=== PATIENT | male | born 1970 | race Two or more races ===

== ENCOUNTER 2021-08-16 21:18 | Observation (INO) | payer BC ==
--- NOTE | 2021-08-16 21:44 | ED ---
Chest Pain HPI - General Chief Complaint: Chest Pain Stated Complaint: Chest Pain Time Seen by Provider: 08/16/21 21:36 Source: patient, RN notes reviewed, old records reviewed Mode of arrival: EMS Limitations: no limitations - History of Present Illness Initial Comments: This is a 51-year-old male to the emergency department for evaluation of chest pain epigastric chest pain left-sided chest pain. She does have history of cardiac issues. Patient chest pain is pretty typical here today. No travel show sick contacts no fevers. MD Complaint: chest pain -: hour(s) Onset: during rest, during exertion Pain Location: substernal, left chest Pain Radiation: none Severity: mild Severity scale (1-10): 2 Quality: tightness Consistency: intermittent Improves With: nothing Worsens With: nothing Anginal Symptoms: sense of impending doom Other Symptoms: palpitations Treatments Prior to Arrival: none - Related Data Home Medications Medication Instructions Recorded Confirmed Atorvastatin Calcium [Lipitor] 40 mg PO HS 08/16/21 08/16/21 Chlorthalidone [Hygroton] 25 mg PO HS 08/16/21 08/16/21 Escitalopram [Lexapro] 20 mg PO HS 08/16/21 08/16/21 Fluticasone Nasal [place] [Flonase 2 spray EA NOSTRIL DAILY PRN 08/16/21 08/16/21 Nasal [place]] Gabapentin 600 mg PO TID 08/16/21 08/16/21 Ibuprofen [Motrin] 800 mg PO TID PRN 08/16/21 08/16/21 Methocarbamol [Robaxin-750] 750 mg PO TID PRN 08/16/21 08/16/21 Pantoprazole [Protonix] 40 mg PO BID 08/16/21 08/16/21 hydrOXYzine pamoate [hydrOXYzine 25 mg PO TID PRN 08/16/21 08/16/21 PAMOATE] lisinopriL [Zestril] 20 mg PO DAILY 08/16/21 08/16/21 traZODone HCL 50 mg PO HS 08/16/21 08/16/21 Allergies Allergy/AdvReac Type Severity Reaction Status Date / Time Penicillins Allergy Itching Verified 08/16/21 21:57 Review of Systems ROS Statement: Those systems with pertinent positive or pertinent negative responses have been documented in the HPI. ROS Other: All systems not noted in ROS Statement are negative. EKG Findings - EKG Comments: EKG Findings:: EKG shows sinus rhythm 76 WA 131 QRS 150 QTC 446 General Exam General appearance: alert, in no apparent distress Head exam: Present: atraumatic, normocephalic, normal inspection Eye exam: Present: normal appearance, PERRL, EOMI. Absent: scleral icterus, conjunctival injection, periorbital swelling ENT exam: Present: normal exam, mucous membranes moist Neck exam: Present: normal inspection. Absent: tenderness, meningismus, lymphad enopathy Respiratory exam: Present: normal lung sounds bilaterally. Absent: respiratory distress, wheezes, rales, rhonchi, stridor Cardiovascular Exam: Present: regular rate, normal rhythm, normal heart sounds. Absent: systolic murmur, diastolic murmur, rubs, gallop, clicks GI/Abdominal exam: Present: soft, normal bowel sounds. Absent: distended, tenderness, guarding, rebound, rigid Extremities exam: Present: normal inspection, full ROM, normal capillary refill. Absent: tenderness, pedal edema, joint swelling, calf tenderness Back exam: Present: normal inspection Neurological exam: Present: alert, oriented X3, CN II-XII intact Psychiatric exam: Present: normal affect, normal mood Skin exam: Present: warm, dry, intact, normal color. Absent: rash Course Vital Signs 08/16/21 08/16/21 21:27 22:18 Temperature 98.0 F Pulse Rate 77 88 Respiratory 18 18 Rate Blood Pressure 167/93 O2 Sat by Pulse 99 97 Oximetry - Reevaluation(s) Reevaluation #1: 08/17/21 00:26 Medical record is reviewed Reevaluation #2: 08/17/21 00:26 Patient informed results and questions are answered Reevaluation #3: 08/17/21 00:26 Patient still having intermittent chest pain here in the ER - Consultations Consultation #1: Spoke with [facility] who agreed to admit this patient Chest Pain MDM - MDM 48 female DF for evaluation of chest pain. Patient has normal troponin normal EKG. Patient will be admitted for chest pain observation Disposition Clinical Impression: Chest pain Disposition: ADMITTED IP TO THIS HOSP Condition: Undetermined Is patient prescribed a controlled substance at d/c from ED?: No
--- NOTE | 2021-08-16 22:04 | XR ---
EXAMINATION TYPE: XR chest 2V DATE OF EXAM: 08/16/2021 COMPARISON: NONE HISTORY: Pain TECHNIQUE: 2 views FINDINGS: Heart is normal. Lungs are clear of infiltrate. There is no heart failure. There are no hil ar masses. The bony thorax is intact. There are chest leads. IMPRESSION: No active cardiopulmonary disease. Normal heart.
[2021-08-16 22:28] LABS: Basophils # (A) 0.1 k/uL (0-0.2); Basophils % (A) 1 %; Eosinophils # (A) 0.3 k/uL (0-0.7); Eosinophils % (A) 3 %; HGB 13.6 gm/dL (13.0-17.5); Lymphocytes # (A) 2.5 k/uL (1.0-4.8); Lymphocytes % (A) 30 %; MCH 31.5 pg (25.0-35.0); MCHC 33.9 g/dL (31.0-37.0); Mean Platelet Volume 7.2; Monocytes # (A) 0.8 k/uL (0-1.0); Monocytes % (A) 9 %; Neutrophils # (A) 4.5 k/uL (1.3-7.7); Neutrophils % (A) 53 %; Platelet Count 384 k/uL (150-450); RDW 13.1 % (11.5-15.5); WBC 8.4 k/uL (3.8-10.6)
[2021-08-16 22:43] LABS: ALT 33 U/L (4-49); AST 41 U/L (17-59); African American GFR (CKD) >90 (>60 ml/min/1.73 sqM); Alkaline Phosphatase 65 U/L (38-126); Anion Gap 7 mmol/L; Blood Urea Nitrogen 17 mg/dL (9-20); Calcium 8.6 mg/dL (8.4-10.2); Carbon Dioxide 27 mmol/L (22-30); Chloride 103 mmol/L (98-107); Glucose 95 mg/dL (74-99); INR 0.9 (<1.2); Lipase 198 U/L (23-300); Magnesium 1.8 mg/dL (1.6-2.3); Non-African American GFR(CKD) >90 (>60 ml/min/1.73 sqM); Potassium 3.7 mmol/L (3.5-5.1); Sodium 137 mmol/L (137-145); Total Bilirubin 0.5 mg/dL (0.2-1.3); Total Protein 7.3 g/dL (6.3-8.2)
[2021-08-16 22:44] LABS: Partial Thromboplastin Time 23.2 sec (22.0-30.0)
--- NOTE | 2021-08-16 23:46 | CT ---
EXAMINATION TYPE: CT angio chest DATE OF EXAM: 08/16/2021 COMPARISON: None HISTORY: Chest Pain. R/O PE CT DLP: 527.10 mGycm Automated exposure control for dose reduction was used. CONTRAST: Performed with IV Contrast, patient injected with 70 mL of Isovue 370. There are Three-D postprocessed images. The lungs are clear of consolidation. There is no pleural effusion. Heart size is normal. There is no pericardial effusion. There are no hilar masses. There is no mediastinal adenopathy. There is no pneumothorax. Thoracic aorta is intact. There is no aneurysm or dissection. There is normal contrast opacification of the pulmonary arteries. There are no filling defects. The thoracic spine is intact. There is no compression fracture. Sternum is intact. Upper abdominal so ft tissues are intact. IMPRESSION: Negative exam. No evidence of pulmonary embolism.
[2021-08-17] MEDS ORDERED: ASPIRIN 81 MG PO STA (00:01)
[2021-08-17] MEDS ORDERED: NITROGLYCERIN SL TABS 0.4 MG TAB SUBLINGUAL PRN (00:01)
[2021-08-17] MEDS ORDERED: MORPHINE SULFATE 4 MG/ML SYRINGE IV PRN (00:01)
[2021-08-17] MEDS ORDERED: FLUTICASONE 50MCG/SPRAY NASAL 16GM EA NOSTRIL PRN (03:45)
[2021-08-17] MEDS ORDERED: methocarbamoL 750 MG TAB PO PRN (03:45)
--- NOTE | 2021-08-17 03:47 | P.HPIM ---
History of Present Illness H&P Date: 08/16/21 Patient is a 51-year-old male with a PMH of tobacco abuse (smokes 1 pack per day), hypertension, hyperlipidemia, and COPD who presents to the emergency room with complaints of chest discomfort. The patient reports substernal sharp and subsequently pressure-like chest discomfort that started suddenly at around 8 PM tonight. The pain was 7 out of 10 on maximal intensity, with associated shortness of breath and palpitations. The patient denied experiencing nausea, vomiting, diaphoresis, or dizziness. He reports that the pain quickly improved after receiving sublingual nitroglycerin by EMS. At the time of interview, the patient reports that his pain is essentially resolved. He denied experiencing cough, fever, chills, abdominal pain, diarrhea. Chest CTA in the emergency room was unremarkable. EKG revealed sinus rhythm with a right bundle branch block at 76 bpm. Laboratory evaluation revealed a troponin of less than 0.012. Review of systems: Pertinent positives and negatives as discussed in HPI, a complete review of systems was performed and all other systems are negative. Physical examination: General: non toxic, no distress, appears at stated age, obese Derm: no unusual rashes/lesions no unusual ecchymoses, warm, dry Head: atraumatic, normocephalic, symmetric Eyes: EOMI, no lid lag, anicteric sclera, pupils equal round reactive to light ENT: Nose and ears atraumatic, no thrush, no pharyngeal erythema Neck: No thyromegaly, no cervical lymphadenopathy, trachea midline, supple Mouth: no lip lesion, mucus membranes moist Cardiovascular: S1S2 reg, no murmur, positive posterior tibial pulse bilateral, no edema, capillary refill less than 2 seconds Lungs: CTA bilateral, no rhonchi, no rales , no accessory muscle use Abdominal: soft, nontender to palpation, no guarding, no appreciable organomegaly, normal bowel sounds Ext: no gross muscle atrophy, muscle strength 5 out of 5 in all 4 extremities grossly, no contractures, Neuro: CN II-XI grossly intact, light touch intact all 4 extremities, finger to nose within normal limits, Psych: Alert, oriented, appropriate affect Assessment/plan Chest pain, rule out ACS -Continue with aspirin -Trend troponin -Cardiology consult -Cardiac monitoring Chronic conditions: Hypertension, hyperlipidemia, COPD -Continue with home meds DVT prophylaxis -Heparin subcu The patient is admitted with an anticipated less than 2 midnight stay for evaluation of chest pain CODE STATUS: Full Code Discussed with: Patient Anticipated discharge date: in am Anticipated discharge place: Home Past Medical History History of Any Multi-Drug Resistant Organisms: None Reported Smoking Status: Never smoker Medications and Allergies Home Medications Medication Instructions Recorded Confirmed Type Atorvastatin Calcium [Lipitor] 40 mg PO HS 08/16/21 08/16/21 History Chlorthalidone [Hygroton] 25 mg PO HS 08/16/21 08/16/21 History Escitalopram [Lexapro] 20 mg PO HS 08/16/21 08/16/21 History Fluticasone Nasal [place] [Flonase 2 spray EA NOSTRIL DAILY PRN 08/16/21 08/16/21 History Nasal [place]] Gabapentin 600 mg PO TID 08/16/21 08/16/21 History Ibuprofen [Motrin] 800 mg PO TID PRN 08/16/21 08/16/21 History Methocarbamol [Robaxin-750] 750 mg PO TID PRN 08/16/21 08/16/21 History Pantoprazole [Protonix] 40 mg PO BID 08/16/21 08/16/21 History hydrOXYzine pamoate [hydrOXYzine 25 mg PO TID PRN 08/16/21 08/16/21 History PAMOATE] lisinopriL [Zestril] 20 mg PO DAILY 08/16/21 08/16/21 History traZODone HCL 50 mg PO HS 08/16/21 08/16/21 History Allergies Allergy/AdvReac Type Severity Reaction Status Date / Time Penicillins Allergy Itching Verified 08/16/21 21:57 Physical Exam Vitals: Vital Signs Temp Pulse Pulse Resp BP BP Pulse Ox 08/17/21 01:14 98.2 F 69 15 157/72 98 08/17/21 00:56 81 16 168/77 96 08/17/21 00:47 81 81 H 168/77 96 08/16/21 22:18 88 18 97 08/16/21 21:27 98.0 F 77 18 167/93 99 Intake and Output 08/16/21 08/16/21 08/17/21 14:59 22:59 06:59 Other: Weight 104.326 kg 104.326 kg Results CBC & Chem 7: 08/16/21 22:00 08/16/21 22:00 Labs: Abnormal Lab Results - Last 24 Hours (Table) 08/16/21 Range/Units 22:00 D-Dimer 0.97 H (<0.60) mg/L FEU
[2021-08-17] MEDS ORDERED: PANTOPRAZOLE 40 MG TABLET PO SCH (07:30)
[2021-08-17] MEDS ORDERED: HEPARIN SODIUM,PORCINE/PF 5,000 UNIT/0.5 ML SYRINGE SQ SCH (08:00)
[2021-08-17 08:16] VITALS: BP 149/84; PULSE 62; RESP 18; TEMP 98.4
[2021-08-17] MEDS ORDERED: ASPIRIN 81 MG PO SCH (09:00)
[2021-08-17] MEDS ORDERED: lisinopriL 20 MG TAB PO SCH ×2 (09:00)
[2021-08-17] MEDS ORDERED: GABAPENTIN 300 MG CAP PO SCH (09:00)
--- NOTE | 2021-08-17 09:46 | P.CRDCN ---
History of Present Illness Consult date: 08/17/21 History of present illness: HISTORY OF PRESENT ILLNESS: This is a 51-year-old male with a past medical history significant for hypertension, hyperlipidemia, nicotine dependence, and daily alcohol use. 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 We have been asked to see the patient in consultation for chest pain. Patient examined at the bedside. Patient states yesterday he was about to get in the shower to get ready for work when he began having pain in the middle of his chest. He states it felt like a sharp pain. He states it only lasted for a few seconds and then went away and then he felt tightness in his chest for about 20 or 30 minutes and then it slowly resolved on its own. He denied any radiation of the pain. He does repor t feeling short of breath at the time but he thinks it was related to anxiety. This morning he denies any chest pain or pressure. The patient is a current smoker and smokes 1 pack per day. He is also on everyday drinker and states he drinks 1/2 pint of alcohol daily. Patient's blood pressure is elevated this morning with a systolic in the 160s. * EKG reveals sinus mechanism with right bundle branch block. * Chest xray no active cardiopulmonary disease * Chest CTA: Negative for pulmonary embolism * Laboratory data: WBC 8.4. Hemoglobin 13.6. Platelet count 384. D-dimer 0.97. Sodium 137. Potassium 3.7. BUN 17. Creatinine 0.93. Magnesium 1.8. Troponin negative 3. * Current home cardiac medications include lisinopril 20 mg daily, chlorthalidone 25 mg at night, and atorvastatin 40 milligrams at night REVIEW OF SYSTEMS: At the time of my exam: CONSTITUTIONAL: Denies fever or chills. HEENT: Denies blurred vision, vision changes, or eye pain. Denies hemoptysis CARDIOVASCULAR: Denies chest pain. Denies orthopnea. Denies PND. Denies palpitations RESPIRATORY: Denies shortness of breath. GASTROINTESTINAL: Denies abdominal pain. Denies nausea or vomiting. HEMATOLOGIC: Denies bleeding disorders. GENITOURINARY: Denies any blood in urine. SKIN: Denies pruitis. Denies rash. PHYSICAL EXAM: VITAL SIGNS: Reviewed. GENERAL: Well-developed in no acute distress. HEENT: Head is normocephalic. Pupils are equal, round. Sclerae anicteric. Mucous membranes of the mouth are moist. Neck supple. No JVD or thyromegaly LUNGS: Respirations even and unlabored. Lungs essentially clear to auscultation bilaterally. HEART: Regular rate and rhythm. S1 and S2 heard. ABDOMEN: Soft. Nondistended. Nontender. EXTREMITIES: Normal range of motion. No clubbing or cyanosis. Peripheral pulses intact. No lower extremity edema NEUROLOGIC: Awake and alert. Oriented x 3. ASSESSMENT: Chest pain, troponin negative x 3 Hypertension Hyperlipidemia Nicotine dependence, smokes 1PPD Daily alcohol use, 1/2 pint per day Family history of CAD PLAN: An acute coronary event has been ruled out Obtain 2D echo to assess cardiac structure and function Increase lisinopril to twice a day dosing for optimal blood pressure control Patient to undergo stress echo today to assess for ischemia Smoking cessation recommended Abstinence from alcohol recommended Further recommendations pending patient course Nurse practitioner note has been reviewed by physician. Signing provider agrees with the documented findings, assessment, and plan of care. Past Medical History History of Any Multi-Drug Resistant Organisms: None Reported Smoking Status: Never smoker Medications and Allergies Home Medications Medication Instructions Recorded Confirmed Type Atorvastatin Calcium [Lipitor] 40 mg PO HS 08/16/21 08/16/21 History Chlorthalidone [Hygroton] 25 mg PO HS 08/16/21 08/16/21 History Escitalopram [Lexapro] 20 mg PO HS 08/16/21 08/16/21 History Fluticasone Nasal [place] [Flonase 2 spray EA NOSTRIL DAILY PRN 08/16/21 08/16/21 History Nasal [place]] Gabapentin 600 mg PO TID 08/16/21 08/16/21 History Ibuprofen [Motrin] 800 mg PO TID PRN 08/16/21 08/16/21 History Methocarbamol [Robaxin-750] 750 mg PO TID PRN 08/16/21 08/16/21 History Pantoprazole [Protonix] 40 mg PO BID 08/16/21 08/16/21 History hydrOXYzine pamoate [hydrOXYzine 25 mg PO TID PRN 08/16/21 08/16/21 History PAMOATE] lisinopriL [Zestril] 20 mg PO DAILY 08/16/21 08/16/21 History traZODone HCL 50 mg PO HS 08/16/21 08/16/21 History Allergies Allergy/AdvReac Type Severity Reaction Status Date / Time Penicillins Allergy Itching Verified 08/16/21 21:57 Physical Exam Vitals: Vital Signs Temp Pulse Pulse Resp BP BP Pulse Ox 08/17/21 01:14 98.2 F 69 15 157/72 98 08/17/21 00:56 81 16 168/77 96 08/17/21 00:47 81 81 H 168/77 96 08/16/21 22:18 88 18 97 08/16/21 21:27 98.0 F 77 18 167/93 99 Intake and Output 08/16/21 08/17/21 08/17/21 22:59 06:59 14:59 Other: # Voids 1 Weight 104.326 kg 104.326 kg Results 08/16/21 22:00 08/16/21 22:00 Cardiac Enzymes 08/16/21 08/16/21 08/17/21 Range/Units 22:00 22:00 00:38 AST 41 (17-59) U/L Troponin I <0.012 0.013 (0.000-0.034) ng/mL 08/17/21 Range/Units 02:43 AST (17-59) U/L Troponin I 0.018 (0.000-0.034) ng/mL Coagulation 08/16/21 Range/Units 22:00 PT 10.0 (9.0-12.0) sec APTT 23.2 (22.0-30.0) sec CBC 08/16/21 Range/Units 22:00 WBC 8.4 (3.8-10.6) k/uL RBC 4.30 (4.30-5.90) m/uL Hgb 13.6 (13.0-17.5) gm/dL Hct 40.0 (39.0-53.0) % Plt Count 384 (150-450) k/uL Comprehensive Metabolic Panel 08/16/21 Range/Units 22:00 Sodium 137 (137-145) mmol/L Potassium 3.7 (3.5-5.1) mmol/L Chloride 103 (98-107) mmol/L Carbon Dioxide 27 (22-30) mmol/L BUN 17 (9-20) mg/dL Creatinine 0.93 (0.66-1.25) mg/dL Glucose 95 (74-99) mg/dL Calcium 8.6 (8.4-10.2) mg/dL AST 41 (17-59) U/L ALT 33 (4-49) U/L Alkaline Phosphatase 65 (38-126) U/L Total Protein 7.3 (6.3-8.2) g/dL Albumin 4.0 (3.5-5.0) g/dL Current Medications Generic Name Dose Route Start Last Admin Trade Name Freq PRN Reason Stop Dose Admin Aspirin 325 mg 08/18/21 09:00 Aspirin 325 Mg Tab PO DAILY [facility] Atorvastatin Calcium 40 mg 08/17/21 21:00 Atorvastatin 40 Mg Tab PO HS [facility] Chlorthalidone 25 mg 08/17/21 21:00 Chlorthalidone 25 Mg Tab PO HS [facility] Escitalopram Oxalate 20 mg 08/17/21 21:00 Escitalopram 20 Mg Tab PO HS [facility] Fluticasone Propionate 2 spray 08/17/21 03:45 Fluticasone 50mcg/[place] Nasal 16gm EA NOSTRIL DAILY PRN Allergy Symptoms Gabapentin 600 mg 08/17/21 09:00 Gabapentin 300 Mg Cap PO TID [facility] Heparin Sodium (Porcine) 5,000 unit 08/17/21 08:00 Heparin Sodium,Porcine/Pf 5,000 Unit/0.5 Ml Syringe SQ Q8HR [facility] Lisinopril 20 mg 08/17/21 09:00 Lisinopril 20 Mg Tab PO DAILY [facility] Methocarbamol 750 mg 08/17/21 03:45 Methocarbamol 750 Mg Tab PO TID PRN Muscle Pain Morphine Sulfate 4 mg 08/17/21 00:01 Morphine Sulfate 4 Mg/Ml Syringe IV Q4HR PRN Chest Pain Nitroglycerin 0.4 mg 08/17/21 00:01 Nitroglycerin Sl Tabs 0.4 Mg Tab SUBLINGUAL Q5M PRN Chest Pain Pantoprazole Sodium 40 mg 08/17/21 07:30 Pantoprazole 40 Mg Tablet PO AC-BID [facility] Trazodone HCl 50 mg 08/17/21 21:00 Trazodone Hcl 50 Mg Tab PO HS [facility] Intake and Output 08/16/21 08/17/21 08/17/21 22:59 06:59 14:59 Other: # Voids 1 Weight 104.326 kg 104.326 kg 08/16/21 22:00 08/16/21 22:00
--- NOTE | 2021-08-17 12:31 | ECHOF ---
Referral Reason:LV function MEASUREMENTS -------- HEIGHT: 180.3 cm WEIGHT: 104.3 kg BP: 149/84 IVSd: 1.3 cm (0.6 - 1.1) LVIDd: 5.0 cm (3.9 - 5.3) LVPWd: 1.2 cm (0.6 - 1.1) EDV(Teich): 120 ml IVSs: 1.9 cm LVIDs: 3.2 cm LVPWs: 1.8 cm %IVS Thck: 47 % ESV(Teich): 41 ml EF(Teich): 66 % %FS: 36 % SV(Teich): 79 ml LA Diam: 3.5 cm (2.7 - 3.8) RVIDd: 3.1 cm (< 3.3) Ao Diam: 3.4 cm (2.0 - 3.7) AV Cusp: 2.5 cm (1.5 - 2.6) EPSS: 0.7 cm MV E Inocencio: 1.06 m/s MV DecT: 230 ms MV Dec Mcminn: 4.6 m/s MV A Inocencio: 0.79 m/s MV E/A Ratio: 1.35 MV PHT: 67 ms AV Vmax: 1.71 m/s AV maxP.65 mmHg TR Vmax: 2.35 m/s TR maxP.00 mmHg RAP: 5.00 mmHg RVSP: 27.00 mmHg MV EF SLOPE: 123.76 mm/s (70 - 150) MV EXCURSION: 16.66 mm (> 18.000) FINDINGS -------- Sinus rhythm. This was a technically adequate study. The left ventricular size is normal. There is mild concentric left ventricular hypertrophy. Overa ll left ventricular systolic function is normal with, an EF between 55 - 60 %. The right ventricle is normal in size. The left atrium is normal in size. The right atrium is normal in size. Interatrial and interventricular septum intact. Trace to mild aortic regurgitation. The mitral valve is normal. Mild tricuspid regurgitation present. Right ventricular systolic pressure is normal at < 35 mmHg. The pulmonic valve is normal. The aortic root size is normal. IVC Not well visulized. There is no pericardial effusion. CONCLUSIONS -------- 1. The left ventricular size is normal. 2. There is mild concentric left ventricular hypertrophy. 3. Overall left ventricular systolic function is normal with, an EF between 55 - 60 %. 4. Trace to mild aortic regurgitation. 5. Mild tricuspid regurgitation present. 6. There is no pericardial effusion. WEIGHER AND GRADER: Blanca Persaud RDCS
--- NOTE | 2021-08-17 13:58 | P.STRESS ---
- Stress Test Note Stress Test Results/Findings: Exam Performed: stress echo exercise Exam Date: 08/17/21 Reason for Exam: CP Height: 5 ft 11 in Weight: 104.33 kg Protocol: STRESS ECHO Stage: 111 Duration of Exercise: 8.01 Resting Heart Rate: 65 Resting Blood Pressure: 146/55 Maximum Achieved Heart Rate: 149 Maximum Achieved Blood Pressure: 200/54 85% PMHR: 142 100% PMHR: 167 METS: 10.4 Technologist Comment: Stress Test Results/Findings: Baseline 12-lead EKG shows sinus rhythm normal [place] right bundle branch block normal ST segments Patient exercised on a Dl protocol for 8 minutes. Peak heart rate 149 beats a minute. Peak blood pressure 207/85 mmHg No symptoms No ECG evidence for ischemia or arrhythmia Baseline 2-D echo showed normal LV size and systolic function without segmental wall motion abnormalities At peak exercise there was excellent augmentation of overall LV contractility. No wall motion abnormalities At recovery regional global LV systolic function remained normal Impression average excess capacity No ECG or echocardiographic evidence for ischemia Hypertensive response to exercise Suggest Increase lisinopril to 20 mg twice daily
--- NOTE | 2021-08-17 14:24 | P.DS ---
<José Luis Aleman - Last Filed: 08/17/21 18:44> Providers Expected date of discharge: 08/17/21 Hospital Course: Discharge Diagnosis: Atypical chest pain, acute coronary event ruled out. Hypertension, lisinopril increased to 20 mg twice daily secondary to hypertensive response to exercise Hyperlipidemia COPD Nicotine dependence Hospital Course: Patient is a very pleasant 51-year-old male with a past medical history of hypertension, hyperlipidemia, COPD and current nicotine use smoking one pack of cigarettes daily. He presented to the emergency department on 08/16/21 with a chief complaint of chest pain. He was seen and fully evaluated in the emergency department and admitted under our services with consultation to cardiology to rule out acute coronary syndrome. An EKG was completed revealing normal sinus rhythm at 76 bpm with an incomplete right bundle branch block. Troponins trended and resulting at less than 0.012, 0.013, and 0.018. D-dimer was elevated at 0.97. CTA chest was completed negative for pulmonary emboli. Chest x-ray completed negative for acute cardiopulmonary process. Echocardiogram completed revealing a normal EF between 55 and 60% with no significant valvular abnormalities. Patient underwent Stress echo revealing no EKG evidence for ischemia or arrhythmia with impression of average exercise capacity, no echocardiographic evidence for reversible ischemia, hypertensive response to exercise. Cardiology recommending to increase lisinopril to 20 mg twice daily. Patient is medically stable for discharge at this time. Patient to follow-up outpatient as instructed with PCP and cardiology. Physical examination: Patient seen and examined at bedside. Patient reports being completely free from chest pain, shortness of breath, palpitations, or any other complaints at this time. Vital signs reviewed and stable. General: Nontoxic, no distress and appears stated age. Derm: Skin warm and dry, normal coloration for ethnicity. Head: Atraumatic, normocephalic and symmetric. Eyes: EOMs intact, no lid lag, and anicteric sclera Mouth: no lip lesions, mucus membranes moist Cardiovascular: regular rate and rhythm with normal S1S2, no murmur, positive posterior tibial pulses bilaterally, and cap refill < 2 seconds. Lungs: Respirations even, regular, and unlabored on room air. Lungs CTA bilaterally, no rhonchi, no rales, no wheezing, and no accessory muscle usage. Abdominal: soft, nontender to palpation, no guarding, no appreciable organomegaly Ext: ROM intact. No gross muscle atrophy, no edema, no contractures Neuro: Speech clear, face symmetrical and CN II-XII grossly intact with no noted focal neuro deficits Psych: Alert and oriented to person, place, time, and situation. Appropriate and pleasant affect. A total of 37 minutes of time were spent preparing this complex discharge summary. Patient Condition at Discharge: Stable Plan - Discharge Summary New Discharge Prescriptions: New lisinopriL [Zestril] 20 mg PO BID 30 Days #60 tab Continue traZODone HCL 50 mg PO HS hydrOXYzine pamoate [hydrOXYzine PAMOATE] 25 mg PO TID PRN PRN Reason: Anxiety Escitalopram [Lexapro] 20 mg PO HS Chlorthalidone [Hygroton] 25 mg PO HS Pantoprazole [Protonix] 40 mg PO BID Methocarbamol [Robaxin-750] 750 mg PO TID PRN PRN Reason: Muscle Pain Ibuprofen [Motrin] 800 mg PO TID PRN PRN Reason: Pain Gabapentin 600 mg PO TID Fluticasone Nasal [place] [Flonase Nasal [place]] 2 spray EA NOSTRIL DAILY PRN PRN Reason: Allergy Symptoms Atorvastatin Calcium [Lipitor] 40 mg PO HS Discontinued lisinopriL [Zestril] 20 mg PO DAILY Discharge Medication List Atorvastatin Calcium [Lipitor] 40 mg PO HS 08/16/21 [History] Chlorthalidone [Hygroton] 25 mg PO HS 08/16/21 [History] Escitalopram [Lexapro] 20 mg PO HS 08/16/21 [History] Fluticasone Nasal [place] [Flonase Nasal [place]] 2 spray EA NOSTRIL DAILY PRN 08/16/21 [History] Gabapentin 600 mg PO TID 08/16/21 [History] Ibuprofen [Motrin] 800 mg PO TID PRN 08/16/21 [History] Methocarbamol [Robaxin-750] 750 mg PO TID PRN 08/16/21 [History] Pantoprazole [Protonix] 40 mg PO BID 08/16/21 [History] hydrOXYzine pamoate [hydrOXYzine PAMOATE] 25 mg PO TID PRN 08/16/21 [History] traZODone HCL 50 mg PO HS 08/16/21 [History] lisinopriL [Zestril] 20 mg PO BID 30 Days #60 tab 08/17/21 [Rx] Follow up Appointment(s)/Referral(s): Chapin Abdalla MD [Primary Care Provider] - 1-2 days Riccardo Villafana MD [STAFF PHYSICIAN] - 1 Week Patient Instructions/Handouts: Chest Pain (ED) Activity/Diet/Wound Care/Special Instructions: Activity: As tolerated. Take breaks as needed. Diet: Heart healthy and carb consistent diet. Avoid salts, or foods with hidden salts such as canned or boxed foods and frozen dinners. Extra salt makes your heart work harder and traps the fluid in your body for longer. Special Instructions: Take all of your medications as directed and remember to keep all of your doctor's appointments and follow-up as needed. Thank you for allowing us to participate in your care, it was truly a pleasure having you for our patient!!! Discharge Disposition: HOME SELF-CARE <Brittney Ortiz - Last Filed: 08/18/21 18:48> Providers Date of admission: 08/17/21 00:01 Attending physician: Sharda Bethea MD Primary care physician: Chapin Abdalla [place] [facility] Course: I reviewed the documentation as provided by the HUGH above, who is the original author of this note. I agree with the documented assessment and plan, with the following changes: None
[2021-08-17] MEDS ORDERED: traZODone HCL 50 MG TAB PO SCH (21:00)
[2021-08-17] MEDS ORDERED: ESCITALOPRAM 20 MG TAB PO SCH (21:00)
[2021-08-17] MEDS ORDERED: ATORVASTATIN 40 MG TAB PO SCH (21:00)
[2021-08-17] MEDS ORDERED: CHLORTHALIDONE 25 MG TAB PO SCH (21:00)
[2021-08-18] MEDS ORDERED: ASPIRIN 325 MG TAB PO SCH (09:00)
--- NOTE | 2021-08-20 09:42 | ECHOS ---
Stress Test Results/Findings: Exam Performed: stress echo exercise Exam Date: 08/17/21 Reason for Exam: CP Height: 5 ft 11 in Weight: 104.33 kg Protocol: STRESS ECHO Stage: 111 Duration of Exercise: 8.01 Resting Heart Rate: 65 Resting Blood Pressure: 146/55 Maximum Achieved Heart Rate: 149 Maximum Achieved Blood Pressure: 200/54 85% PMHR: 142 100% PMHR: 167 METS: 10.4 Technologist Comment: Stress Test Results/Findings: Baseline 12-lead EKG shows sinus rhythm normal CT right bundle branch block normal ST segments Patient exercised on a Dl protocol for 8 minutes. Peak heart rate 149 beats a minute. Peak blood pressure 207/85 mmHg No symptoms No ECG evidence for ischemia or arrhythmia Baseline 2-D echo showed normal LV size and systolic function without segmental wall motion abnormalities At peak exercise there was excellent augmentation of overall LV contractility. No wall motion abnormalities At recovery regional global LV systolic function remained normal Impression average excess capacity No ECG or echocardiographic evidence for ischemia Hypertensive response to exercise Suggest Increase lisinopril to 20 mg twice daily MTDD
== END 2021-08-17 15:17 | disposition home or self-care (01) ==
LOC: EC 21:18 → SUPCPDRO 21:18 → 6NMEDSUR 08-17 00:01
PROVIDERS: ADMIT Internal Medicine; ATTEND Internal Medicine
DX: R07.2 Precordial pain (principal); R10.13 Epigastric pain; R00.2 Palpitations; I11.9 Hypertensive heart disease without heart failure; F17.210 Nicotine dependence, cigarettes, uncomplicated; J44.9 Chronic obstructive pulmonary disease, unspecified; E78.5 Hyperlipidemia, unspecified; I45.10 Unspecified right bundle-branch block; E66.9 Obesity, unspecified; Z68.32 Body mass index [BMI] 32.0-32.9, adult; F41.9 Anxiety disorder, unspecified; Z79.899 Other long term (current) drug therapy; Z88.0 Allergy status to penicillin; Z71.6 Tobacco abuse counseling; Z72.89 Other problems related to lifestyle; Z71.3 Dietary counseling and surveillance; Z82.49 Family history of ischemic heart disease and other diseases of the circulatory system
CPT/HCPCS: 99285; 36415; 93005; 93306; 93351; 85379; 83880; 80053; 83690; 83735; 84484 ×2; 85025; 85610; 85730; 71046; 71275; G0378; Q9967